=== PATIENT | female | born 1955 | race Caucasian/White ===

== ENCOUNTER 2016-10-07 06:59 | Inpatient (IN) | payer OTHER ==
[~2016-10-07] VITALS: Ht 177.8 cm; Wt 98.0 kg
[2016-10-07] VITALS (12 sets, daily range): BP systolic 78–142; BP diastolic 43–97
--- NOTE | 2016-10-07 07:17 | NUR ---
MSE COMPLETED BY DR. CANDELARIO, LAB AT BEDSIDE FOR BLOOD DRAW AND BLOOD CX, RT AT BEDSIDE FOR ABG'S
--- NOTE | 2016-10-07 07:25 | NUR ---
DR. CANDELARIO SPEAKING WITH PT REGARDING POSSIBLE INTUBATION
--- NOTE | 2016-10-07 07:26 | NUR ---
PT ABLE TO WIGGLE TOES, EQUAL NCQA SPECIALIST, PT FOLLOWING COMMANDS
--- NOTE | 2016-10-07 07:32 | NUR ---
PT MOVED FROM BED 5 TO T1
--- NOTE | 2016-10-07 07:42 | NUR ---
INTUBATION IN PROGRESS BY DR CANDELARIO
[2016-10-07 07:45] LABS: PLATELET COUNT 240 x10^3mcL (130-400); RED CELL DISTRIBUTION WIDTH 13.2 % (11.5-14.5)
--- NOTE | 2016-10-07 07:58 | NUR ---
PROPOFOL INFUSION STARTED AT THIS TIME AT 5MCG/KG/MIN
[2016-10-07 07:59] LABS: AST/SGOT 3 U/L (15-37); CALCIUM 9.4 mg/dL (8.5-10.1); CHLORIDE SERUM 102 mmol/L (98-107); CREATININE SERUM 1.3 mg/dL (0.6-1.0); GFR1 44 mL/min; POTASSIUM SERUM 3.8 mmol/L (3.5-5.1); SODIUM SERUM 139 mmol/L (136-145)
--- NOTE | 2016-10-07 07:59 | NUR ---
AVILES CATH INSERTION IN PROGRESS
--- NOTE | 2016-10-07 08:06 | NUR ---
LAB AT BEDSIDE FOR BLOOD DRAW
--- NOTE | 2016-10-07 08:06 | NUR ---
NG TUBE INSERTION IN PROGRESS BY ELLEN RAYMUNDO AND ROSSANA CARRASCO STUDENTS
--- NOTE | 2016-10-07 08:12 | NUR ---
PORTABLE CXR AT BEDSIDE AT THIS TIME
--- NOTE | 2016-10-07 08:20 | NUR ---
PT MOVING PROPROFOL INFUSION TITRATED UP TO 7MCG/KG/MIN AT THIS TIME RT AT BEDSIDE FOR ABG BLOOD DRAW.
[2016-10-07 08:27] LABS: ALBUMIN 3.6 g/dL (3.4-5.0); ALKALINE PHOSPHATASE 176 U/L (46-116); ALT/SGPT 54 U/L (14-59); BILIRUBIN TOTAL 0.49 mg/dL (0.20-1.00); CARBON DIOXIDE 22.8 mmol/L (21-32); CHOLESTEROL 186 mg/dL (<200); GLUCOSE SERUM 147 mg/dL (74-106); TOTAL PROTEIN, SERUM 8.1 g/dL (6.4-8.2)
[2016-10-07 08:36] LABS: FREE T4 0.02 ng/dL (0.76-1.46); FREE THYROXINE INDEX 1.2 ug/dL (1.4-4.5); T4(THYROXINE) 2.1 ug/dL (4.7-13.3)
--- NOTE | 2016-10-07 08:45 | NUR ---
PROPOFOL INFUSION TITRATED TO 15MCG/KG/MIN DUE TO PT MOVING DURING CT SCAN EXAM
--- NOTE | 2016-10-07 08:52 | NUR ---
PT BACK FROM CT WITH NO INCIDENT.
--- NOTE | 2016-10-07 08:54 | NUR ---
ET TUBE REPOSITIONED PER DR CANDELARIO ORDER BY SHANNON MACIEL. PROPOFOL INFUSION INCREASED TO 20MCG/KG/MIN FOR SEDATION.
--- NOTE | 2016-10-07 08:58 | NUR ---
ET TUBE REPOSITIONED TO 23CM PER DR CANDELARIO ORDERS
--- NOTE | 2016-10-07 08:58 | NUR ---
PROPOFOL INFUSION AT 25MCG/KG/MIN AT THIS TIME.
[2016-10-07 09:01] LABS: BAND NEUTROPHIL 3 % (0-10); MONOCYTE 5 % (0-7); SEGMENTED NEUTROPHILS 85 % (37-75); rbc morphology (normal/abnorm) NORMAL (NORMAL)
--- NOTE | 2016-10-07 09:07 | NUR ---
PORTABLE CXR COMPLETED
[2016-10-07 09:08] LABS: AMPHETAMINE QUAL UR NONE DETECTED (NEG <=1000)
--- NOTE | 2016-10-07 09:13 | NUR ---
FIO2 TITRATED TO 80% BREANNE MARIN.
[2016-10-07 09:14] LABS: T3 TOTAL 1.6 ng/mL
--- NOTE | 2016-10-07 09:16 | NUR ---
ETT ADVANCED TO 24CM AND RR INCREASED TO [address] CANDELARIO VERBAL ORDER, RN AUGUSTUS MARIN.
--- NOTE | 2016-10-07 09:16 | NUR ---
PT CONTINUES TO MOVE PROPOFOL INFUSION INCREASED TO 30MCG/KG/MIN
--- NOTE | 2016-10-07 09:17 | NUR ---
IV TO LAC DC'D DUE TO NOT FLUSHING WELL, NEW IV SITE ESTABLISHED TO RAC 20G PATENT FLUSHED WITH 10CC NS
--- NOTE | 2016-10-07 09:29 | NUR ---
UNABLE TO ADVANCE ETT TO 24CM AT THIS TIME, PT AGGITATED, DR. CANDELARIO AND RN AUGUSTUS MARIN, WILL ADVANCE ETT AT A LATER TIME.
[2016-10-07 09:33] LABS: UA SPECIFIC GRAVITY <=1.005 (1.005-1.035); microscopic required? YES; urine erythrocyte TRACE (NEGATIVE)
--- NOTE | 2016-10-07 10:03 | NUR ---
PROPOFOL INFUSION DECREASED TO 25MCG/KG/MIN PER DR CANDELARIO ORDERS DUE TO BP 99/52 AT THIS TIME. WILL CONTINUE TO MONITOR PT.
--- NOTE | 2016-10-07 10:10 | NUR ---
AT BEDSIDE, PARTIAL UPPER DENTURES GIVEN TO AT THIS TIME
--- NOTE | 2016-10-07 10:11 | NUR ---
PROPOFOL INFUSION AT 20MCG/KG/MIN AT THIS TIME BP 96/[address] CANDELARIO. WILL CONTINUE TO MONITOR
--- NOTE | 2016-10-07 10:20 | NUR ---
ET TUBE ADVANCED TO 25CM AT THIS TIME BY SHANNON FROM RT
--- NOTE | 2016-10-07 10:24 | NUR ---
PROPOFOL INFUSION AT 25MCG/KG/MIN AT THIS TIME DUE TO PT MOVING. RT AT BEDSIDE AT THIS TIME. RESIDENT NICOLE AT BEDSIDE SPEAKING TO FAMILY
--- NOTE | 2016-10-07 10:36 | NUR ---
PORTABLE CXR AT BEDSIDE FOR REPOSITION OF ET TUBE
--- NOTE | 2016-10-07 11:05 | NUR ---
REPORT RECEIVED FROM AUGUSTUS RAYMUNDO IN ER. UPDATES PROVIDED, ALL QUESTIONS ANSWERED ALL CONCERNS ADDRESSED. WILL CONTINUE TO MONITOR PATIENT.
--- NOTE | 2016-10-07 11:17 | NUR ---
REPORT GIVEN TO KAREN RAYMUNDO IN ICU WHO WILL RESUME CARE OF PT.
[2016-10-07 11:25] LABS: CHOLESTEROL/HDL RATIO 3.3; PHOSPHOROUS 1.3 mg/dL (2.5-4.9)
--- NOTE | 2016-10-07 11:32 | NUR ---
PT TRANSPORTED TO ICU VIA GURNEY ON PORTABLE CM, NS AT 150ML/HR INFUSING IN ROUTE TO ICU, PROPOFOL INFUSION AT 25MCG/KG/MIN IN PROGRESS. FLOYD RN AND SHANNON RT TRANSPORTING PT. KAREN RAYMUNDO RESUMING CARE OF PT
--- NOTE | 2016-10-07 11:34 | NUR ---
PATIENT ARRIVED ON UNIT AT THIS TIME. NO SIGNS OF DISTRESS NOTED. PATIENT HR 108, BP 122/43 (69), O2 97, RR 18. TEMP 98.5, HT 5'10 WT 111 KG. PATIENT IS NONVERBAL AT THIS TIME, FOLLOWS COMMANDS APPROPRIATELY AND OPENS EYES SPONTANEOUSLY. PATIENT IS SEDATED ON PROPOFOL 25 MCG/KG/MIN AND RSS OF 3 NOTED. NS AT 125 ML/HR RUNNING. PATIENT HAS IV TO RIGHT AC, AND LEFT HAND. PATIENT PUPILS ARE 4 MM AND BRISK BILATERALLY. PATIENT HAS NO HX OF CVA BUT HAS HX OF ANXIETY AND DEPRESSION. TRACHEA IS MIDLINE, NO SCLERAL EDEMA NOTED. PATIENT HAS NGT TO THE RIGHT NARE IN PLACE, AIR AUSCULTATED OVER GASTRIC REGION TO VERIFY PLACEMENT. PATIENT IS INTUBATED WITH 7.5 ETT THAT IS 25 LL PATIENT IS ON AC WITH THE FOLLOWING SETTINGS: FIO2 80, Vt 550. RATE 18, PEEP 5. LUNG SOUNDS ARE CLEAR TO BUL AND DIM TO BBA. CHEST RISES SYMMETRICALLY. PATIENT ABDOMEN IS SOFT AND ROUND, HYPOACTIVE IN ALL 4 QUADRANTS. NO BM NOTED. PATIENT HAS AVILES CATHETER IN PLACE THAT IS DRAINING YELLOW URINE TO GRAVITY. NO LABIAL EDEMA NOTED AND NO VAGINAL DISCHARGE SEEN. PATIENT HAS GENERALIZED WEAKNESS. PATIENT HAS BILATERALLY SOFT WRIST RESTRAINTS. NO OBIVOUS CONTRACTURES OR DEFORMITIES NOTED. PATIENT SKIN IS INTACT. WILL CONTINUE TO MONITOR PATIENT.
--- NOTE | 2016-10-07 12:11 | NUR ---
TWO SMALL SILVER COLORED RINGS REMOVED FROM PATIENT'S LEFT TOES AND GIVEN TO PATIENT'S .
[2016-10-07] MEDS ORDERED: MORPHINE SULFAT30 M6 PO (12:19)
[2016-10-07] MEDS ORDERED: ZOLOFT50 MG PO (12:20)
[2016-10-07] MEDS ORDERED: CLONAZEPAM1 MG PO (12:20)
[2016-10-07] MEDS ORDERED: AMITRIPTYLINE150 MG PO (12:20)
[2016-10-07] MEDS ORDERED: CYCLOBENZAPRINE10 MG PO (12:21)
--- NOTE | 2016-10-07 12:21 | NUR ---
PATIENT'S PROVIDED PATIENT'S HOME MEDICATIONS. MED REC. COMPLETED BY RASHIDA RAYMUNDO AND MEDICATIONS GIVEN BACK TO PATIENT'S .
--- NOTE | 2016-10-07 12:25 | NUR ---
FIO2 DECREASED TO 70 AT THIS TIME PER RT SHANNON. WILL CONTINUE TO MONITOR PATIENT.
--- NOTE | 2016-10-07 12:30 | NUR ---
DR. RODRÍGUEZ IS BEDSIDE WITH PATIENT AND AND SON AT THIS TIME. FAMILY WAS EXPLAINED RISK AND BENEFITS OF CENTRAL LINES PLACEMENT. FAMILY AGREED AND CONSENT WAS SIGNED.
--- NOTE | 2016-10-07 13:30 | NUR ---
CARDIAC ECHO IN PROGRESS AT THIS TIME, WILL CONTINUE TO MONITOR PATIENT.
--- NOTE | 2016-10-07 13:56 | NUR ---
ECHOCARDIOGRAM COMPLETED
--- NOTE | 2016-10-07 15:05 | NUR ---
DR. GAITAN BEDSIDE WITH PATIENT AT THIS TIME FOR CENTRAL LINE PLACEMENT. PATIENT SEDATED WITH DILAUDID AND NO ATIVAN NEEDED. WILL CONTINUE TO MONITOR PATIENT.
--- NOTE | 2016-10-07 15:25 | NUR ---
RADIOLOGY BEDSIDE WITH PATIENT AT THIS TIME FOR CXR. WILL CONTINUE TO MONITOR PATIENT.
--- NOTE | 2016-10-07 16:15 | NUR ---
PER DR. RODRÍGUEZ CENTRAL LINE IS OK TO USE AT THIS TIME. PROPOFOL AND IVF MOVED TO INFUSED THROUGH CENTRAL LINE. WILL CONTINUE TO MONITOR PATIENT.
--- NOTE | 2016-10-07 18:15 | NUR ---
FIO2 DECREASED TO 70% AT THIS TIME. WILL CONTINUE TO MONITOR PATIENT.
--- NOTE | 2016-10-07 18:53 | NUR ---
PROPOFOL INCREASED TO 35 MCG/KG/MIN AT THIS TIME DUE TO PATIENT MOVING ARMS AND LEGS AND BEING INCREASINGLY RESTLESS. WILL CONTINUE TO MONITOR PATIENT.
--- NOTE | 2016-10-07 19:22 | NUR ---
REPORT GIVEN TO NOC SHIFT RN. UPDATES PROVIDED, ALL QUESTIONS ANSWERED ALL CONCERNS ADDRESSED. WILL ENDORSE CARE.
--- NOTE | 2016-10-07 19:25 | NUR ---
REPORT TAKEN FROM KAREN, ALL CARE ENDORSSED.
--- NOTE | 2016-10-07 19:30 | NUR ---
RECEIVEDD PT INTUBATED AND SEDATED WITH PROPOFOL AT 35 MCG/KG/MIN, MRSS4 RIJ INTACT. VENTED WITH AC MODE AT 550, FIO2 60%, PEEP 5, R 18, PT SAT AT TIME 94%, BOWEL SOUND HYPOACTIVE X4Q, HEP SQ, SCD'S, AVILES IN PLACE, BUE SOFT WRIST RESTRAIN. REPOSITION PER PROTOCOL, ROM TO BUE, PER PROTOCOL. SAFETY IN PLACE. CALL LIGHT WITHIN REACH. WILL CONTINUE TO MONITOR.
--- NOTE | 2016-10-07 20:08 | NUR ---
RT AT PT BEDSIDE PER PROTOCOL.
--- NOTE | 2016-10-07 21:00 | NUR ---
PT IS NO DIET ORDER. PAGED DR ALAN TO MAKE HIM AWARE.
--- NOTE | 2016-10-07 23:30 | NUR ---
TITRA PROPOFOL TO 30MCG/KG/MIN, WILL CONTINUE TO MONITOR.
[2016-10-08] VITALS (14 sets, daily range): BP systolic 88–139; BP diastolic 49–93; Ht 177.8 cm; Wt 98.0 kg
--- NOTE | 2016-10-08 00:30 | NUR ---
REASSESSMENT IS COMPLETED. PT IS INTUBATED AND SEDATED WITH PROPOFOL AT 30MCG/MIN. MRSS 4 AT TIME. RIJ INTACT. RNGT. VENTED AT NO CHAGES. RNGT. PT IS NPO EXCEPT MEDS AND NUTRUTION CONSULT PER DR ALAN. BOWEL SOUND HYPOACTIVE X4Q. SCD'S IN PLACE. REPOSITION PER PROTOCOL. ROM PER PROTOCOL TO EMILY. STEFAN IN PACE. WILL CONTINUE TO MONITOR.
--- NOTE | 2016-10-08 02:32 | NUR ---
PT IS NPO AT TIME EXCEPT MEDS, NUTRIENT CONSULT PER DR ALAN.
--- NOTE | 2016-10-08 05:00 | NUR ---
MORNING BLOOD DRAWN FROM CENRAL LINE.
[2016-10-08 05:20] LABS: BASOPHIL % 0.2 % (0-2); PLATELET COUNT 198 x10^3mcL (130-400); RED CELL DISTRIBUTION WIDTH 13.9 % (11.5-14.5)
[2016-10-08 05:40] LABS: CALCIUM 7.5 mg/dL (8.5-10.1); CARBON DIOXIDE 22.2 mmol/L (21-32); CHLORIDE SERUM 110 mmol/L (98-107); CREATININE SERUM 0.9 mg/dL (0.6-1.0); GFR1 > 60 mL/min; GLUCOSE SERUM 113 mg/dL (74-106); MAGNESIUM 1.9 mg/dL (1.8-2.4); PHOSPHOROUS 2.1 mg/dL (2.5-4.9); POTASSIUM SERUM 3.7 mmol/L (3.5-5.1); SODIUM SERUM 142 mmol/L (136-145)
--- NOTE | 2016-10-08 07:20 | NUR ---
REPORT GIVEN TO CHELSIE, ALL CARE ENDORSSED.
--- NOTE | 2016-10-08 07:45 | NUR ---
RECEIVED PT FROM NIGHT RN. PT ON PROPOFOL AT 35 MCG/KG/MIN, AWAKE, ABLE TO FOLLOW SIMPLE COMMANDS AND GESTURES NEEDS. ON AC MODE, TV 550, FIO2 60%, PEEP 6, RATE 18. NO ACUTE RESP DISTRESS AT THIS TIME. NSR ON WELLNESS ASSISTANT. BOWEL SOUNDS ACTIVE. NGT TO R NARE. PULSES PALPABLE ON ALL EXTREMITIES. BILAT UPPER EXTREMITY SOFT WRIST RESTRAINTS IN PLACE, ROM PER PROTOCOL. NS INFUSING AT 150 ML/HR TO RIJ. AVILES CATHETER DRAINING TO GRAVITY. HOB ELEVATED. PT DENIES PAIN. WILL CONTINUE TO MONITOR.
--- NOTE | 2016-10-08 10:06 | NUR ---
PATIENT ROUNDS WITH DR. NAVAS AND RESIDENTS. CHARGE NURSE AND PRIMARY NURSE AT BEDSIDE. UPDATES PROVIDED. POC DISCUSSED. WILL CONTINUE TO MONITOR.
--- NOTE | 2016-10-08 10:15 | NUR ---
FIO2 DECREASED TO 50%, O2 SAT 97-98%. NO ACUTE RESP DISTRESS NOTED. WILL CONTINUE TO MONITOR.
--- NOTE | 2016-10-08 10:42 | NUR ---
PT ATTEMPTING SIT UP AND REACHING FOR LINES AND TUBES. PROPOFOL INCREASED TO 45 MCG/KG/MIN PER PROTOCOL. WILL CONTINUE TO MONITOR.
--- NOTE | 2016-10-08 11:14 | NUR ---
PT RESTLESS, PULLED OUT IV ON L HAND. PROPOFOL INCREASED TO 50 MCG/KG/MIN PER PROTOCOL. PT ABLE TO OPEN EYES TO VERBAL STIMULUS AND GESTURES NEEDS. WILL CONTINUE TO MONITOR.
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
--- NOTE | 2016-10-08 12:32 | NUR ---
1. When medically feasible, initiate Peptamen AF at 10ml/hr and advance by 10ml q4hr to goal rate of 40ml/hr to provide 1152kcals, 73g protein, 776ml free H2O. Free H2O Flush of 105ml q6hr (total free H2O 1196ml) or per MD. This nutrition support regimen, including Propofol at 23.31ml/qr=[id number], will provide 1767kcals, 73g protein, and 1196ml free H2O. 2. Once Propofol has been weaned, increase Peptamen AF goal rate to 60ml/hr to provide 1728kcals, 109g protein, 1164ml free H2O. Free H2O Flush of 105ml q6hr (total free H2O 1584ml) or per MD.
--- NOTE | 2016-10-08 13:00 | NUR ---
SHIFT REASSESSMENT DONE. PT OPENS EYES TO VERBAL STIMULUS AND FOLLOWS SIMPLE COMMANDS. ON PROPOFOL AT 50 MCG/KG/MIN. ON A/C MODE, TV 550, FIO2 50%, PEEP 5, RATE 18. NO ACUTE RESP DISTRESS NOTED AT THIS TIME. ETT AND NGT TO R NARE IN PLACE AND SECURED. ORAL CARE PER VAP PROTOCOL. DENIES PAIN. RONEY UPPER SOFT WRIST RESTRAINTS IN PLACE, ROM PROVIDED PER PROTOCOL. GOWN AND LINEN CHANGED. IVF INFUSING TO RIJ. HOB ELEVATED. FAMILY AT BEDSIDE. WILL CONTINUE TO MONITOR.
--- NOTE | 2016-10-08 13:10 | NUR ---
DR. RODRÍGUEZ NOTIFIED OF TROP 0.122. PT ON HEPARIN DRIP AT 1400 UNITS/HR. WILL CONTINUE TO MONITOR.
--- NOTE | 2016-10-08 13:20 | NUR ---
VERSED AT 2 MG/HR AND FENTANYL AT 1 MCG/KG/HR STARTED ORDERED. PT OPENS EYES TO VERBAL STIMULUS, GESTURES NEEDS AND FOLLOWS SIMPLE COMMANDS. WILL CONTINUE TO MONITOR.
--- NOTE | 2016-10-08 13:31 | NUR ---
DR. MONK AT BEDSIDE ASSESSING PT. PT'S DAUGHTER AND SON ALSO PRESENT AND UPDATED WITH PLAN OF CARE.
--- NOTE | 2016-10-08 15:25 | NUR ---
PEPTAMEN AF TF STARTED AT 10 ML/HR WITH FWF 105 ML EVERY 6 HOURS.
--- NOTE | 2016-10-08 16:45 | NUR ---
SHIFT REASSESSMENT DONE. PT ON VERSED 2 MG/HR AND FENTANYL 1 MCG/KG/HR. OPENS EYES TO VERBAL STIMULUS, MOUTHS OFF WORDS AND USES PEN AND PAPER TO COMMUNICATE. ETT AND NGT R NARE IN PLACE AND SECURED. PEPTAMEN TF AT 10 ML/HR, RESIDUAL 0 ML. AVILES CATH DRAINING DAX URINE TO GRAVITY. AVILES CARE PER PROTOCOL PROVIDED. TURNED TO L SIDE. HOB ELEVATED. DENIES PAIN. IVF INFUSING. WILL CONTINUE TO MONITOR.
--- NOTE | 2016-10-08 17:30 | NUR ---
BILAT UPPER SOFT WRIST RESTRAINTS REMOVED. PT CALM AND COOPERATIVE AT THIS TIME. WILL CONTINUE TO MONITOR CLOSELY.
--- NOTE | 2016-10-08 18:27 | NUR ---
CALLED [facility] AND SPOKE WITH GUERO TO GIVE REPORT. PT GOING TO [facility] RM [id number], RECEIVING DR. Francisco JANSEN. PER GUERO, CALL BACK AT 8PM TO GIVE REPORT. ASYA FRIED RN MADE AWARE. WILL CONTINUE TO MONITOR.
--- NOTE | 2016-10-08 19:30 | NUR ---
RECEIVED PT FROM AM BREANNE HOLGUIN. PATIENT QUIETLY RESTING IN BED AT THIS TIME. RIJ CENTRAL LINE IN PLACE. CONTINUED ON VERSED 2MG/HR AND FENTANYL 1MCG/KG/HR. NG TUBE TO RIGHT NARES. EET IN PLACE LL24 7.5 SIZE TUBBING. AWAKE AND ABLE TO MAKE NEEDS KNOWN. VENTILATED WITH SETTINGS AT RATE18, TIDAL 550, FI02 50, PEAK 55, PEEP 5. AVILES CATH IN PLACE DRAINING DAX COLORED URINE. LUNG SOUNDS CLEAR UPPER AND DIMINSHED TO RONEY LOWER BASES. BS HYPOACTIVE. PATIENT C/O CONSTIPATION AND REQUESTING TO GET OUT OF BED. INFORMED PATIENT AND SHE IS UNABLE TO GET UP OUT OF BED AT THIS TIME DUE TO SAFETY.
--- NOTE | 2016-10-08 20:00 | NUR ---
PATIENT HAD ONE LARGE SOFT FORMED BM. CLEANED PATIENT. TOLERATED WELL.
--- NOTE | 2016-10-08 22:14 | NUR ---
[facility] TEAM HERE TO RADIATION CONTROL HEALTH PHYSICIST PATIENT FOR TRANSFER TO [facility]. PATIENT CURRENTLY STABLE AT THIS TIME. ID BANDS REMOVED AND ALL BELONGINGS WITH PATIENT AND [facility] PERSONNEL. NO S/SX OF RESPIRATORY DISTRESS
--- NOTE | 2016-10-08 22:42 | NUR ---
RECEIVED CALL FROM GEMMA FROM [facility] WHO ASKED US TO CALL [facility] ICU NURSE TO PROVIDE REPORT REGARDING PATIENT. CALLED [facility] AND PROVIDED UPDATED REPORT. PER MARIZA, PATIENT HAS ARRIVED TO ICU [facility]. ALL QUESTIONS ANSWERED.
== END 2016-10-08 22:20 | disposition short-term general hospital (02) | DRG 720 ==
LOC: ED 06:59 → IC 10:03
PROVIDERS: Specialist; ADMIT Family Medicine
PROC: 0BH17EZ Insertion of Endotracheal Airway into Trachea, Via Natural or Artificial Opening (ICD-10-PCS; principal; 2016-10-07)
PROC: 5A1945Z Respiratory Ventilation, 24-96 Consecutive Hours (ICD-10-PCS; 2016-10-07)
PROC: 02HV33Z Insertion of Infusion Device into Superior Vena Cava, Percutaneous Approach (ICD-10-PCS; 2016-10-07)
DX: A41.9 Sepsis, unspecified organism (principal); J96.01 Acute respiratory failure with hypoxia; N17.0 Acute kidney failure with tubular necrosis; R65.21 Severe sepsis with septic shock; J69.0 Pneumonitis due to inhalation of food and vomit; G93.41 Metabolic encephalopathy; N39.0 Urinary tract infection, site not specified; M79.7 Fibromyalgia; M51.36 Other intervertebral disc degeneration, lumbar region; G47.00 Insomnia, unspecified; E83.39 Other disorders of phosphorus metabolism; G89.29 Other chronic pain; M54.5 Low back pain; J44.9 Chronic obstructive pulmonary disease, unspecified; F41.9 Anxiety disorder, unspecified; F32.9 Major depressive disorder, single episode, unspecified; E07.9 Disorder of thyroid, unspecified; Z79.891 Long term (current) use of opiate analgesic; Z68.33 Body mass index [BMI] 33.0-33.9, adult; Z90.49 Acquired absence of other specified parts of digestive tract; Z90.710 Acquired absence of both cervix and uterus
CPT/HCPCS: 36556; 36600; 83880; 84439; A4628; C9113; G0480; J0330; J0456; J0696; J1170; J1642; J1644; J2250; J2405; J2543; J2704; J3010; J3490; J7030; J7040; J7050; Q0092